=== PATIENT | female | born 1950 | race Caucasian/White ===

== ENCOUNTER 2016-07-03 07:35 | Day surgery (SDC) | payer BC ==
[2016-07-03] MEDS ORDERED: Lactated Ringers 1,000 ML IV SCH (08:15)
[2016-07-03] MEDS ORDERED: Propofol 200 MG/20 ML SDV ONE (08:37)
[2016-07-03] MEDS ORDERED: Midazolam 1 MG/ML 2 ML SDV ONE (08:37)
[2016-07-03] MEDS ORDERED: fentaNYL 100 MCG/2 ML SDV ONE (08:37)
[2016-07-03 10:52] VITALS: BP 110/65
--- NOTE | 2016-07-03 14:07 | OR ---
DATE OF PROCEDURE: 07/03/2016 PREOPERATIVE DIAGNOSIS: Colon cancer screening. POSTOPERATIVE DIAGNOSIS: Diverticulosis. PROCEDURE: Colonoscopy to the cecum. ANESTHESIA: IV anesthesia with monitored anesthesia care. INDICATION: This 66-year-old white female is referred for a colonoscopy for colon cancer screening. She says her last colonoscopic exam was done ten years ago. I counseled her for the procedure including risks and alternatives, and she gave her informed consent to proceed. PROCEDURE: The patient was placed in the left lateral decubitus position. IV anesthesia was administered by the Anesthesia Service. Time-out was held. A rectal exam was performed, which was unremarkable. The flexible video Olympus colonoscope was introduced through her anus, up her rectum, and out her colon all the way to the cecum. En route, we saw multiple left-sided diverticula. There was no bleeding or inflammation associated with any of them. Once the cecum was reached, the scope was slowly withdrawn, examining the mucosa throughout. No additional mucosal abnormalities were noted. No neoplastic lesions were seen. The scope was retroflexed in the rectum with the distal rectum appearing unremarkable. The scope was straightened and removed. She tolerated the procedure well. Khurram York MD /[id number] MTDD
== END 2016-07-03 11:05 | disposition home or self-care (01) ==
LOC: JP.SDS 07:35
PROVIDERS: ATTEND Surgery
PROC: 0DJD8ZZ Inspection of Lower Intestinal Tract, Via Natural or Artificial Opening Endoscopic (ICD-10-PCS; principal; 2016-07-03)
DX: Z12.11 Encounter for screening for malignant neoplasm of colon (principal); K57.30 Diverticulosis of large intestine without perforation or abscess without bleeding; E78.00 Pure hypercholesterolemia, unspecified; Z88.2 Allergy status to sulfonamides; Z88.8 Allergy status to other drugs, medicaments and biological substances
CPT/HCPCS: 45378; J2250; J2704; J3010

== ENCOUNTER 2019-04-29 14:23 | Day surgery (SDC) | payer BC, MEDICARE ==
[2019-04-29] MEDS ORDERED: Morphine 2 MG/ML SYRINGE IVPUSH ONE (14:24)
[2019-04-29] MEDS ORDERED: Nozin Nasal Sanitizer NASBOTH ONE (14:45)
[2019-04-29 14:54] VITALS: BP 150/93; PULSE 102
[2019-04-29] MEDS ORDERED: Lactated Ringers 1,000 ML IV SCH (15:00)
--- NOTE | 2019-04-29 15:42 | PCM.HP.2 ---
H&P History of Present Illness - General Date of Service: 04/29/19 Source of Information: Patient History Limitations: Reports: No Limitations - History of Present Illness Initial Comments - Free Text/Narative: 68 year old left hand dominant female sustained a wrist fracture in a fall at home. Slipped on ice bringing in garbage cans. Presented to the [facility] with obvious deformity of left wrist. No other injury. No complaints of numbness in fingers. Onset of Symptoms: Reports: Today, Sudden Duration of Symptoms: Reports: Hour(s): Quality: Reports: Sharp, Throbbing Severity: Moderate Improves with: Reports: Cold Therapy, Immobilization Worsens with: Reports: Immobilization, Movement Associated Symptoms: Reports: No Other Symptoms Left Wrist Pain Score (Numeric/FACES): 5 - Related Data Allergies/Adverse Reactions: Allergies Allergy/AdvReac Type Severity Reaction Status Date / Time codeine Allergy Lethargy Verified 04/29/19 14:56 cyclobenzaprine Allergy Lethargy Verified 04/29/19 14:56 rosuvastatin Allergy Airway Verified 04/29/19 14:56 Tightness simvastatin Allergy Airway Verified 04/29/19 14:56 Tightness Sulfa (Sulfonamide Allergy Rash Verified 04/29/19 14:56 Antibiotics) Home Medications: Home Meds Aspirin [Adult Low Dose Aspirin EC] 81 mg PO DAILY 06/29/16 [History] Black Cohosh Root Extract [Black Cohosh] 160 mg PO DAILY 06/29/16 [History] Cholecalciferol (Vitamin D3) [Delta D3] 400 unit PO DAILY 06/29/16 [History] Emu Oil 3 ml PO DAILY 06/29/16 [History] Multivit-Min/Iron Fum/Folic AC [Kgtdb-Bqztuxg-Bzihhrqh Tablet] 1 each PO DAILY 06/29/16 [History] [place]-3/DHA/Epa/Fish Oil [Galena-3 Fish Oil 1,000 MG Sfgl] 2,000 mg PO BID [History] Papaya [Papaya Enzyme] 1 each PO TID 06/29/16 [History] Calcium Carbonate [Calcium] 500 mg PO DAILY 04/29/19 [History] Garlic 200 mg PO DAILY 04/29/19 [History] Krill Oil 500 mg PO DAILY 04/29/19 [History] Lactobacillus 3/Fos/Pantethine [Probiotic & Acidophilus] 1 each PO DAILY [History] Turmeric 400 mg PO DAILY 04/29/19 [History] Past Medical History HEENT History: Reports: None, Cataract Cardiovascular History: Reports: None Respiratory History: Reports: None Gastrointestinal History: Reports: None Genitourinary History: Reports: None 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: Musculoskeletal History: Reports: Back Pain, Chronic, Fracture Other Musculoskeletal History: left wrist Neurological History: Reports: None Psychiatric History: Reports: None Endocrine/Metabolic History: Reports: None, Obesity/BMI 30+ Hematologic History: Reports: None Immunologic History: Reports: None Oncologic (Cancer) History: Reports: None Dermatologic History: Reports: None - Infectious Disease History Infectious Disease History: Reports: Chicken Pox, Measles, Shingles - Past Surgical History Head Surgeries/Procedures: Reports: None HEENT Surgical History: Reports: Cataract Surgery GI Surgical History: Reports: Colonoscopy, EGD Endocrine Surgical History: Reports: None Musculoskeletal Surgical History: Reports: None Social & Family History - Family History Family Medical History: Unobtainable - Tobacco Use Smoking Status *Q: Former Smoker Years of Tobacco use: 20 Packs/Tins Daily: 1 Used Tobacco, but Quit: Yes Month/Year Tobacco Last Used: 1999 Second Hand Smoke Exposure: No - Caffeine Use Caffeine Use: Reports: Tea - Recreational Drug Use Recreational Drug Use: No H&P Review of Systems - Review of Systems: Review Of Systems: Comprehensive ROS is negative, except as noted in HPI. Exam - Exam Exam: See Below - Vital Signs Vital Signs: Last Vital Signs Temp 36.6 C 04/29/19 14:53 Pulse 102 H 04/29/19 14:53 Resp 16 04/29/19 14:53 BP 150/93 H 04/29/19 14:53 Pulse Ox 97 04/29/19 14:53 Weight: 91.172 kg - Exam General: Alert, Oriented, 4 Neck: Supple, Trachea Midline, 2 Lungs: Clear to Auscultation, Normal Respiratory Effort Cardiovascular: Regular Rate, Regular Rhythm GI/Abdominal Exam: Normal Bowel Sounds, Soft, Non-Tender, No Organomegaly, No Distention, No Abnormal Bruit (Female) Exam: Deferred Rectal (Female) Exam: Deferred Back Exam: Normal Inspection, Full Range of Motion, NT Extremities: Other (Dinner fork deformity of left wrist) Peripheral Pulses: 1+: Radial (L) Skin: Warm, Dry, Intact Neurological: Cranial Nerves Intact, Reflexes Equal Bilateral, Other (sensation intact) Neuro Extensive - Mental Status: Alert, Oriented x3, Normal Mood/Affect, Normal Cognition Neuro Extensive - Motor, Sensory, Reflexes: CN II-XII Intact, Normal Gait, Normal Reflexes Psychiatric: Alert, Normal Affect, Normal Mood - Patient Data Lab Results Last 24 hrs: Laboratory Results - last 24 hr 04/29/19 04/29/19 Range/Units 14:46 14:46 WBC 8.6 (4.5-11.0) K/uL RBC 4.88 (3.30-5.50) M/uL Hgb 13.7 (12.0-15.0) g/dL Hct 41.0 (36.0-48.0) % MCV 84 (80-98) fL MCH 28 (27-31) pg MCHC 33 (32-36) % Plt Count 291 (150-400) K/uL Sodium 134 L (140-148) mmol/L Potassium 3.4 L (3.6-5.2) mmol/L Chloride 101 (100-108) mmol/L Carbon Dioxide 25 (21-32) mmol/L Anion Gap 11.4 (5.0-14.0) mmol/L BUN 18 (7-18) mg/dL Creatinine 0.8 (0.6-1.0) mg/dL Est Cr Clr Drug Dosing 54.71 mL/min Estimated GFR (MDRD) > 60 (>60) Glucose 118 H (74-106) mg/dL Calcium 8.7 (8.5-10.1) mg/dL Total Bilirubin 0.5 (0.2-1.0) mg/dL AST 27 (15-37) U/L ALT 38 (12-78) U/L Alkaline Phosphatase 130 H (46-116) U/L Total Protein 7.9 (6.4-8.2) g/dL Albumin 3.4 (3.4-5.0) g/dL Globulin 4.5 H (2.3-3.5) g/dL Albumin/Globulin Ratio 0.8 L (1.2-2.2) Result Diagrams: 04/29/19 14:46 04/29/19 14:46 Sepsis Event Note - Focused Exam Vital Signs: Vital Signs Temp Pulse Resp BP Pulse Ox 01/07/20 14:53 36.6 C 102 H 16 150/93 H 97 04/29/19 13:58 35.7 C 107 H 165/84 H Date Exam was Performed: 04/29/19 Time Exam was Performed: 15:36 - Problem List (1) Distal radius fracture, left SNOMED Code(s): 341665005 ICD Code: S52.502A - UNSP FRACTURE OF THE LOWER END OF LEFT RADIUS, INIT Status: Acute Current Visit: Yes Qualifiers: Encounter type: initial encounter Fracture type: closed Fracture morphology: Colles' Qualified Code(s): S52.532A - Colles' fracture of left radius, initial encounter for closed fracture Problem List Initiated/Reviewed/Updated: Yes Orders Last 24hrs: Active Orders 24 hr Category Date Time Status OR Fluoro-NC [CR] Routine Exams 04/29/19 16:30 Ordered Lactated Ringers [Ringers, Lactated] 1,000 ml Med 04/29/19 15:00 Active IV ASDIRECTED ceFAZolin [Ancef] 2 gm Med 04/29/19 16:30 Active Sodium Chloride 0.9% [Normal Saline] 50 ml IV ONETIME Medication Orders Cefazolin Sodium 2 gm/ Sodium (Chloride) 50 mls @ 100 mls/hr IV ONETIME ONE Stop: 04/29/19 16:59 Lactated Ringer's (Ringers, Lactated) 1,000 mls @ 75 mls/hr IV ASDIRECTED MEME Last Admin: 04/29/19 14:59 Dose: 75 mls/hr Assessment/Plan Comment:: Displaced, comminuted left distal radius fracture. Recommend open reduction and internal fixation. Pros and cons of operative vs non-operative treatment discussed. Risks and benefits discussed, questions answered. She agrees with the plan. - Mortality Measure Prognosis:: Good
[2019-04-29] MEDS ORDERED: Propofol 200 MG/20 ML SDV ONE (15:48)
[2019-04-29] MEDS ORDERED: Neostigmine Methylsulfate 1 MG/ML 5 ML Syringe ONE (15:48)
[2019-04-29] MEDS ORDERED: Ondansetron 4 MG/2 ML SDV ONE (15:48)
[2019-04-29] MEDS ORDERED: Succinylcholine 200 MG/10 ML MDV ONE (15:48)
[2019-04-29] MEDS ORDERED: Glycopyrrolate 0.2 MG/ML 5 ML MDV ONE (15:48)
[2019-04-29] MEDS ORDERED: Dexamethasone 4 MG/ML SDV ONE (15:48)
[2019-04-29] MEDS ORDERED: Rocuronium 50 MG/5 ML Vial ONE (15:48)
[2019-04-29] MEDS ORDERED: fentaNYL 250 MCG/5 ML SDV ONE ×2 (15:49→16:40)
[2019-04-29] MEDS: Bupivacaine 0.5% 50 ML MDV ONE ×3 (16:02→17:27)
[2019-04-29] MEDS ORDERED: ceFAZolin 2 GM in Sodium Chloride 0.9% 50 ML IV ONE (16:30)
[2019-04-29] MEDS ORDERED: Ketorolac 60 MG/2 ML SDV ONE (17:20)
--- NOTE | 2019-05-07 18:53 | OR ---
DATE OF PROCEDURE: 04/29/2019 SURGEON: Salty Tejeda MD PREOPERATIVE DIAGNOSIS: Comminuted displaced left distal radius fracture, extra-articular. POSTOPERATIVE DIAGNOSIS: Comminuted displaced left distal radius fracture, extra-articular. PROCEDURE: Open reduction and internal fixation, left distal radius using [employer] volar plate. ANESTHESIA: General. INDICATIONS: Sandra is a pleasant 68-year-old female who sustained a slip and fall onto her left wrist resulting in a significantly angulated displaced distal radius fracture with comminution, particularly of the dorsal cortex. She presented to the clinic earlier today after the fall and is taken to the operating room now for open reduction and internal fixation. Pros and cons as well as risks, benefits, and potential complications of operative versus nonoperative treatments were discussed. She agrees with plan. DESCRIPTION OF PROCEDURE: After adequate anesthesia was obtained, patient was placed supine with a tourniquet about the left upper arm. Arm was prepped and draped in a sterile fashion. Arm was exsanguinated and tourniquet inflated to 250 mmHg pressure. A longitudinal incision was made over the volar aspect of the wrist and angled slightly toward the radial styloid at the wrist crease. It was taken down through the subcutaneous tissue and the retinaculum was divided. Dissection was taken radial to the median nerve which was identified and protected throughout the case. Self-retaining retractor was placed. The quadratus muscle was divided with electrocautery and periosteal elevator used to expose the fracture. The fracture was then reduced both visually and with the fluoroscopy. A pin was placed through the radial styloid and across the fracture for temporary fixation. A volar plate was selected and positioned over the fracture. This was held with a temporary pin and position confirmed using fluoroscopy. The plate was then secured using a 3.5 cortical screws proximally in the shaft and locking screws distally. Reduction and placement of the screws were confirmed with fluoroscopy in AP and lateral images. Good reduction was obtained. Good fixation was noted with all of the cortical screws. The wound was then irrigated. The skin was closed with 2-0 Vicryl and a running 3-0 Monocryl and Steri-Strips were applied. A volar splint was then placed. Tourniquet was deflated. Patient was taken from the operating room in stable condition. There were no complications. Salty Tejeda MD /[id number]
== END 2019-04-29 19:22 | disposition home or self-care (01) ==
LOC: JP.SDS 14:23
PROVIDERS: ATTEND Specialist
DX: S52.552A Other extraarticular fracture of lower end of left radius, initial encounter for closed fracture (principal); E66.9 Obesity, unspecified; W00.0XXA Fall on same level due to ice and snow, initial encounter; Y93.89 Activity, other specified; Y92.009 Unspecified place in unspecified non-institutional (private) residence as the place of occurrence of the external cause; Z88.5 Allergy status to narcotic agent; Z88.8 Allergy status to other drugs, medicaments and biological substances; Z88.2 Allergy status to sulfonamides; Z79.82 Long term (current) use of aspirin; Z79.899 Other long term (current) drug therapy; Z87.891 Personal history of nicotine dependence; Z68.36 Body mass index [BMI] 36.0-36.9, adult
CPT/HCPCS: 25607; 36415; 80053; 85027; A9270; J0330; J0690; J1100; J1885; J2405; J2704; J2710; J3010; J3490; J7050; J7120; C1713